=== PATIENT | female | born 1965 | race Caucasian/White ===

== ENCOUNTER 2021-12-01 10:04 | Outpatient (CLI) | payer OTHER, SELFPAY ==
--- NOTE | 2021-12-01 | EST_ITS ---
Patient Info Name: Jaz Lozano Age: 56 years : 1965 Gender: Female Ht: 62 in Wt: 177 lbs BSA: 1.91 m2 Exam Date: 12/01/2021 11:08 AM Exam Location: [facility] Stress Patient Status: Outpatient Admit Date: 12/01/2021 Staff Ordering Physician: PHYSICIAN NOT ON STAFF, NONSTAFF Attending Provider: PHYSICIAN NOT ON STAFF, NONSTAFF Exercise Technologist: Judie Sam RDCS Exercise Physician: Anoop Appiah DO Exam Type: CA stress jag w NM Study Info A regadenoson stress test was performed. Summary 1. 1. Negative lexiscan stress test for ischemic ST changes by ECG criteria. 2. 2. Baseline hypertension. 3. 3. Nuclear scan to follow and will be reported separately. Please correlate with it. 4. 4. Patient informed of the above results. Protocol: Lexiscan Stress ECG Details Stage: REST Duration (min): 5 min : 30 sec HR (bpm): 67 SBP (mmHg): 142 DBP (mmHg): 86 Stage: REST Duration (min): 11 min : 6 sec HR (bpm): 65 SBP (mmHg): 142 DBP (mmHg): 86 Stage: STAGE 1 Duration (min): 0 min : 59 sec HR (bpm): 67 SBP (mmHg): 147 DBP (mmHg): 87 Stage: RECOVERY Duration (min): 1 min : 0 sec HR (bpm): 69 SBP (mmHg): 150 DBP (mmHg): 86 Stage: RECOVERY Duration (min): 2 min : 0 sec HR (bpm): 72 SBP (mmHg): 150 DBP (mmHg): 86 Stage: RECOVERY Duration (min): 3 min : 0 sec HR (bpm): 70 SBP (mmHg): 149 DBP (mmHg): 87 Stage: RECOVERY Duration (min): 3 min : 3 sec HR (bpm): 70 SBP (mmHg): 149 DBP (mmHg): 87 Rest HR: 65 bpm Peak HR: 73 bpm Rest Sys BP: 142 mmHg Peak Sys BP: 150 mmHg Max Pred HR: 164 bpm % Max Pred HR: 45 % Target HR: 139 bpm Max RPP: 10,950 bpm*mmHg Termination Reason: Completed protocol Cardiac Symptoms: Shortness of breath Total Time: 1 min : 0 sec Rest Pierre BP: 86 mmHg Peak Pierre BP: 86 mmHg Total Dose: 0.4 mg Resting ECG Sinus rhythm, borderline T wave in anterior leads. Stress ECG No ST changes. Arrhythmias None. Report Signatures
--- NOTE | ~2021-12-01 | NM_ITS ---
EXAMINATION: NM jag stress w perfusion DATE: 12/01/2021 12:49 INDICATION: Congestive heart failure TECHNIQUE: Rest images were obtained following intravenous administration of 9.9 mCi Tc99m tetrofosmi n (Myoview). The patient was infused intravenously with Lexiscan (Regadenoson). Then, 30.3 mCi Tc99m tetrofosmin (Myoview) was administered intravenously, and stress images were obtained in supine posit ion. Additional repeat post stress imaging was obtained in a prone position. Data was reconstructed i nto short axis and horizontal and vertical long axis SPECT images. Gated SPECT images were also obtai hermelinda. COMPARISON: None. FINDINGS: There is no definite reversible or fixed perfusion abnormality to suggest ischemia or infar ction. Borderline left ventricular enlargement with calculated end-diastolic volume of 166 mL. There is mild global hypokinesis with mildly decreased left ventricular ejection fraction which measures 3 8%. IMPRESSION: 1. Normal myocardial perfusion at rest and during stress. 2. Borderline left ventricular enlargement with global hypokinesis and mildly decreased left ventricu lar ejection fraction measuring 38%. Reviewed, dictated and finalized at location B. IMPRESSION: 1. Normal myocardial perfusion at rest and during stress. 2. Borderline left ventricular enlargement with global hypokinesis and mildly d ecreased left ventricular ejection fraction measuring 38%.
== END 2021-12-01 10:05 | disposition home or self-care (01) ==
LOC: ANHCARD 10:05
DX: J44.9 Chronic obstructive pulmonary disease, unspecified (principal)
CPT/HCPCS: 78452; 93017; A9502; J2785

== ENCOUNTER 2021-12-08 07:40 | Outpatient (CLI) | payer OTHER, SELFPAY ==
--- NOTE | ~2021-12-08 | US_ITS ---
EXAMINATION: US right upper quadrant DATE: 12/08/2021 08:24 INDICATION: Elevated liver enzymes TECHNIQUE: Multiple grayscale and Doppler ultrasound images of the abdomen were obtained. COMPARISON: None available FINDINGS: Bowel gas obscures visualization of the pancreas. The visualized portions of the pancreas a re unremarkable. The liver is normal with normal echogenicity and echotexture. No surface nodularity. Normal hepatopetal flow in the main portal vein. The gallbladder is surgically absent. The normal co mmon bile duct measures 6 mm. IMPRESSION: 1. No sonographic correlate for the patient's symptoms. Reviewed, dictated and finalized at location B.
== END 2021-12-08 07:41 | disposition home or self-care (01) ==
DX: R74.8 Abnormal levels of other serum enzymes (principal)
CPT/HCPCS: 76705

== ENCOUNTER 2021-12-27 11:46 | Outpatient (CLI) | payer OTHER, SELFPAY ==
--- NOTE | 2021-12-27 12:12 | ECHO_ITS ---
Patient Info Name: Jaz Lozano Age: 56 years : 1965 Gender: Female Ht: 62 in Wt: 177 lbs BSA: 1.91 m2 HR: 74 bpm BP: 157 / 102 mmHg Technical Quality: Fair Exam Date: 12/27/2021 1:10 PM Exam Location: [facility] Patient Status: Outpatient Admit Date: 12/27/2021 Staff Ordering Physician: Anoop Appiah DO Gasket Supervisor: Judie Sam RDCS Attending Provider: Anoop Appiah DO Referring Physician: Td HEATH; Exam Type: CA echo doppler color flow Study Info Indications I50.9 - Heart failure, unspecified Complete two-dimensional, color flow and Doppler transthoracic echocardiogram is performed. Summary 1. Complete two-dimensional, color flow and Doppler transthoracic echocardiogram is performed. 2. Left ventricular chamber dimension is moderately enlarged. 3. Left ventricular systolic function is moderately reduced, estimated at 35-40%. 4. The left ventricular diastolic function is grade I diastolic dysfunction. 5. E/e' 19 is elevated. 6. Global longitudinal strain is abnormal at -9.5%. 7. There is mild aortic valve regurgitation. Left Ventricle E/e' 19 is elevated. Global longitudinal strain is abnormal at -9.5%. Left ventricular chamber dimension is moderately enlarged. Left ventricular systolic function is moderately reduced, estimated at 35-40%. The left ventricular diastolic function is grade I diastolic dysfunction. Right Ventricle Right ventricular chamber dimension is normal. Right ventricular systolic function is normal. Left Atria Left atrial chamber dimension is normal. Right Atria Right atrial chamber dimension is normal. Aortic Valve The aortic valve is trileaflet. There is no aortic valve stenosis. There is mild aortic valve regurgitation. Pulmonic Valve There is no pulmonic regurgitation. Mitral Valve There is no mitral valve stenosis. There is no mitral valve regurgitation. Tricuspid Valve There is no tricuspid valve regurgitation. Pericardium/Pleural There is no pericardial effusion. Inferior Vena Cava Normal inferior vena cava with >50% collapse upon inspiration consistent with normal right atrial pressure, 5 mmHg. Aorta The aortic root size at the sinus of Valsalva is normal. Left Ventricular Outflow Tract Name Value Normal LVOT 2D LVOT Diameter 2.0 cm LVOT Doppler LVOT Peak Gradient 5 mmHg LVOT Mean Gradient 3 mmHg LVOT VTI 24 cm LVOT VTI/AV VTI Ratio 0.8 LVOT Stroke Volume 74 ml LVOT CO 5.2 l/min LVOT CI 2.7 l/min/m2 Pulmonic Valve Name Value Normal RVOT Doppler RVOT Peak Gradient 2 mmHg PV Doppler
== END 2021-12-27 11:47 | disposition home or self-care (01) ==
PROVIDERS: Visit Provider Internal Medicine Cardiovascular Disease
DX: I50.9 Heart failure, unspecified (principal)
CPT/HCPCS: 93306

== ENCOUNTER 2022-03-01 13:15 | Outpatient (CLI) | payer OTHER, SELFPAY ==
--- NOTE | ~2022-03-01 | MM_ITS ---
EXAMINATION: MM diagnostic jermaine BI w giovanni HISTORY: Bilateral breast skin wounds, 3 on the right, 1 on the left, improving with antibiotics TECHNIQUE: ML, MLO and CC 3-D tomosynthesis images of both breasts were performed and synthetic 2-D i mages were generated. CAD analysis was submitted and interpreted. COMPARISON: 06/18/2008ilateral screening mammogram BREAST PARENCHYMAL COMPOSITION: The breasts are almost entirely fatty. FINDINGS: No suspicious mass or architectural distortion, malignant calcification, skin thickening or retraction or significant new or developing density is detected. IMPRESSION: 1. No mammographic evidence of malignancy 2. Routine mammographic screening is recommended BI-RADS Category 1: Negative Reviewed, dictated and finalized at location A.
== END 2022-03-01 13:16 | disposition home or self-care (01) ==
LOC: ANHIMG 13:17
DX: S21.002D Unspecified open wound of left breast, subsequent encounter (principal); S21.001D Unspecified open wound of right breast, subsequent encounter; X58.XXXD Exposure to other specified factors, subsequent encounter; N63.24 Unspecified lump in the left breast, lower inner quadrant
CPT/HCPCS: 77062; 77066; G0279

== ENCOUNTER 2022-03-09 07:56 | Outpatient (CLI) | payer OTHER, SELFPAY ==
--- NOTE | 2022-03-09 08:37 | ECHO_ITS ---
Patient Info Name: Jaz Lozano Age: 56 years : 1965 Gender: Female Ht: 62 in Wt: 172 lbs BSA: 1.88 m2 HR: 68 bpm BP: 126 / 80 mmHg Technical Quality: Fair Exam Date: 03/09/2022 9:14 AM Exam Location: [facility] Patient Status: Outpatient Admit Date: 03/09/2022 Staff Ordering Physician: Anoop Appiah DO Learning Operations Specialist: Mar Gillespie RDCS Attending Provider: Anoop Appiah DO Referring Physician: Td HEATH; Exam Type: CA echo doppler color flow Study Info Indications - CONGESTIVE HEART FAILURE Complete two-dimensional, color flow and Doppler transthoracic echocardiogram is performed. Summary 1. Complete two-dimensional, color flow and Doppler transthoracic echocardiogram is performed. 2. Left ventricular chamber dimension is mildly enlarged. 3. Left ventricular systolic function is mildly reduced, estimated at 45-50%. 4. The left ventricular diastolic function is grade I diastolic dysfunction. 5. E/e' 12 is mildly elevated. 6. Global longitudinal strain is abnormal at -11.0%. 7. Left atrial chamber dimension is mildly enlarged. 8. There is mild aortic valve regurgitation. 9. There is mild mitral valve regurgitation. 10. No pulmonary hypertension, estimated pulmonary arterial systolic pressure is 25 mmHg. Left Ventricle E/e' 12 is mildly elevated. Global longitudinal strain is abnormal at -11.0%. Left ventricular chamber dimension is mildly enlarged. Left ventricular systolic function is mildly reduced, estimated at 45-50%. The left ventricular diastolic function is grade I diastolic dysfunction. Right Ventricle Right ventricular chamber dimension is normal. Right ventricular systolic function is normal. Left Atria Left atrial chamber dimension is mildly enlarged. Right Atria Right atrial chamber dimension is normal. Aortic Valve The aortic valve is trileaflet. There is no aortic valve stenosis. There is mild aortic valve regurgitation. Pulmonic Valve There is no pulmonic regurgitation. Mitral Valve There is no mitral valve stenosis. There is mild mitral valve regurgitation. Tricuspid Valve There is no tricuspid valve regurgitation. No pulmonary hypertension, estimated pulmonary arterial systolic pressure is 25 mmHg. Pericardium/Pleural There is no pericardial effusion. Inferior Vena Cava Normal inferior vena cava with >50% collapse upon inspiration consistent with normal right atrial pressure, 5 mmHg. Aorta The aortic root size at the sinus of Valsalva is normal. Left Ventricular Outflow Tract Name Value Normal LVOT 2D LVOT Diameter 2.0 cm LVOT Doppler LVOT Peak Gradient 4 mmHg LVOT Mean Gradient 2 mmHg LVOT VTI 20 cm LVOT VTI/AV VTI Ratio 1.1 LVOT Stroke Volume 62 ml LVOT CO 12.3 l/min LVOT CI 6.5 l/min/m2 Pulmonic Valve Name
== END 2022-03-09 07:57 | disposition home or self-care (01) ==
PROVIDERS: Visit Provider Internal Medicine Cardiovascular Disease
DX: I50.9 Heart failure, unspecified (principal); I34.0 Nonrheumatic mitral (valve) insufficiency; I35.1 Nonrheumatic aortic (valve) insufficiency
CPT/HCPCS: 93306

== ENCOUNTER 2022-03-13 17:02 | Outpatient (CLI) | payer OTHER, SELFPAY | END 2022-03-13 17:03 | disposition home or self-care (01) | LOC: ANHLAB 17:03 | PROVIDERS: Visit Provider Surgery | DX: L98.8 Other specified disorders of the skin and subcutaneous tissue (principal) | CPT/HCPCS: 87081 ==

== ENCOUNTER 2023-10-03 10:06 | Outpatient (CLI) | payer OTHER, SELFPAY ==
[2023-10-03 10:45] LABS: Basophils Percent Auto 0.9 % (0.2-1.2); Eosinophils Absolute Auto 0.1 K/mm3 (0-0.3); Eosinophils Percent Auto 2.6 % (0-4.4); Hematocrit 42.2 % (37.0-47.0); Hemoglobin 12.9 g/dL (12.0-15.0); Immature Granulocyte Absolute 0.01 K/mm3 (0.00-0.031); Immature Granulocyte Percent A 0.2 % (0-0.5); Lymphocytes Absolute Auto 1.34 K/mm3 (0.9-3.2); Lymphocytes Percent Auto 29.4 % (18.3-44.2); Mean Corpuscular HGB Conc 30.6 g/dl (32-36); Mean Corpuscular Hemoglobin 29.9 pg (26-34); Mean Corpuscular Volume 97.9 fl (80-100); Mean Platelet Volume 9.6 fl (7.4-10.4); Monocytes Absolute Auto 0.5 K/mm3 (0.1-0.6); Monocytes Percent Auto 10.1 % (2.6-8.5); Neutrophils Absolute Auto 2.6 K/mm3 (1.3-6.7); Neutrophils Percent Auto 56.8 % (45.5-73.1); Platelet Count Result 195 k/mm3 (150-375); Red Blood Count 4.31 M/mm3 (4.2-5.4); Red Cell Distribution Width 14.1 % (11.5-14.5); White Blood Count 4.6 K/mm3 (4.5-10.0)
[2023-10-03 11:00] LABS: Alanine Aminotransferase 25 U/L (6-35); Alkaline Phosphatase 138 U/L (38-126); Anion Gap 5 mmol/L (8-16); Aspartate Amino Transferase 32 U/L (14-36); Bilirubin,Total 0.5 mg/dL (0.2-1.3); Blood Urea Nitrogen 20 mg/dL (7-17); Calcium 9.6 mg/dL (8.4-10.2); Carbon Dioxide 27 mmol/L (22-30); Chloride 105 mmol/L (98-107); Cholesterol 180 mg/dL (0-200); Estimated Glomerular Filt Rate 51; Glucose 93 mg/dL (65-110); HDL Direct 51 mg/dL; Magnesium 2.1 mg/dL (1.6-2.3); Potassium 4.3 mmol/L (3.4-5.0); Sodium 137 mmol/L (137-145); Triglycerides 125 mg/dL (<150)
[2023-10-03 11:12] LABS: LDL Cholesterol Direct 73 mg/dL
[2023-10-03 14:48] LABS: Hemoglobin A1C 5.6 % (<5.7)
== END 2023-10-03 10:07 | disposition home or self-care (01) ==
LOC: ANHLAB 10:09
PROVIDERS: PCP Family Medicine; Visit Provider Internal Medicine Cardiovascular Disease
DX: E78.5 Hyperlipidemia, unspecified (principal)
CPT/HCPCS: 36415; 80053; 80061; 83036; 83735; 85025

== ENCOUNTER 2023-10-10 07:22 | Outpatient (CLI) | payer OTHER, SELFPAY ==
--- NOTE | 2023-10-10 07:28 | ECHO_ITS ---
Patient Info Name: Jaz Lozano Age: 57 years : 1965 Gender: Female Ht: 62 in Wt: 191 lbs BSA: 1.99 m2 HR: 61 bpm BP: 120 / 80 mmHg Technical Quality: Fair Exam Date: 10/10/2023 7:36 AM Exam Location: [facility] Patient Status: Outpatient Admit Date: 10/10/2023 Staff Ordering Physician: Anoop Appiah DO Wrapper Stripper: Attending Provider: Anoop Appiah DO Referring Physician: Td HEATH; Exam Type: CA echo doppler color flow Study Info Indications I50.9 - Heart failure, unspecified Complete two-dimensional, color flow and Doppler transthoracic echocardiogram is performed. Summary 1. Complete two-dimensional, color flow and Doppler transthoracic echocardiogram is performed. 2. Left ventricular systolic function is preserved, estimated at 50-55%. 3. Left ventricular chamber dimension is normal. 4. The left ventricular diastolic function is grade I diastolic dysfunction. 5. E/e' 14 is mildly elevated. 6. Left atrial chamber dimension is mildly enlarged. 7. There is mild aortic valve sclerosis. 8. There is mild aortic valve regurgitation. 9. There is mild mitral valve regurgitation. Left Ventricle E/e' 14 is mildly elevated. Left ventricular systolic function is preserved, estimated at 50-55%. Left ventricular chamber dimension is normal. The left ventricular diastolic function is grade I diastolic dysfunction. Right Ventricle Right ventricular systolic function is normal and with normal TAPSE 2.2 cm. Right ventricular chamber dimension is normal. Left Atria Left atrial chamber dimension is mildly enlarged. Right Atria Right atrial chamber dimension is normal. Aortic Valve The aortic valve is trileaflet. There is mild aortic valve sclerosis. There is no aortic valve stenosis. There is mild aortic valve regurgitation. Pulmonic Valve There is no pulmonic regurgitation. Mitral Valve There is no mitral valve stenosis. There is mild mitral valve regurgitation. Tricuspid Valve There is no tricuspid valve regurgitation. Pericardium/Pleural There is no pericardial effusion. Inferior Vena Cava Normal inferior vena cava with >50% collapse upon inspiration consistent with normal right atrial pressure, 5 mmHg. Aorta The aortic root size at the sinus of Valsalva is normal. Left Ventricular Outflow Tract Name Value Normal LVOT 2D LVOT Diameter 2.0 cm LVOT Doppler LVOT Peak Gradient 4 mmHg LVOT Mean Gradient 2 mmHg LVOT VTI 24 cm LVOT VTI/AV VTI Ratio 0.6 LVOT Stroke Volume 75 ml LVOT CO 3.8 l/min LVOT CI 1.9 l/min/m2 Pulmonic Valve Name Value Normal PV Doppler PV Peak Gradient 2 mmHg Mitral Valve Name
== END 2023-10-10 07:23 | disposition home or self-care (01) ==
LOC: ANHCARD 07:24
PROVIDERS: PCP Family Medicine; Visit Provider Internal Medicine Cardiovascular Disease
DX: I50.9 Heart failure, unspecified (principal); I35.1 Nonrheumatic aortic (valve) insufficiency; I34.0 Nonrheumatic mitral (valve) insufficiency
CPT/HCPCS: 93306

== ENCOUNTER 2025-05-06 12:52 | Outpatient (CLI) | payer OTHER, SELFPAY ==
--- OUTSIDE RECORDS SUMMARY | 2025-05-06 12:58 | XMS_ITS | Encounter Summary ---
Author Organization [facility] Address [address] [place] [address] Care Team Providers Care General House Worker Name Role Phone Gabbi Perry MD Primary Care Provider [phone] Encounter Details Date Type Department Care Team (Late st Contact Info) Description 04/02/2025 Results Follow-Up [facility] [employer] [address] [place] [address] Gabbi Perry MD [address] [place] [address] TSH REFLEXIVE, COMPREHENSIVE METABOLIC PANEL, HEMOGLOBIN A1C Social History Tobacco Use Types Packs/Day Years Used Date Smoking Tobacco: Never Smokeless Tobacco: Never Alcohol Use Standard Drinks/Week Comments Not Currently 1 (1 standard drink = 0.6 oz pure alcohol) Maybe 1 drink a month if that Comments No Sex and Gender Information Value Date Recorded Sex Assigned at Not on file Legal Sex Female 10:45 AM CDT Gender Identity Not on file Sexual Orientation Not on file documented as of this encounter Miscellaneous Notes * Result Encounter Note - Brooke Villalobos - 04/02/2025 3:59 PM CDT Patient called back and has been informed * Result Encounter Note - Brooke Villalobos - 04/02/2025 3:58 PM CDT Lvm for pt to call our office back regarding labs documented in this encounter Plan of Treatment Not on file documented as of this encounter Visit Diagnoses Not on filedocumented in this encounter Care Teams General House Worker Relationship Specialty Start Date End Date Gabbi Perry MD [address] [place] [id number] PCP - General Internal Medicine 02/05/24 documented as of this encounter
--- OUTSIDE RECORDS SUMMARY | 2025-05-06 12:58 | XMS_ITS | Clinical Summary ---
Author Organization [facility] [employer] [place] Address [address] [place] [address] Care Team Providers Care Cinder Block Maker Name Role Phone Gabbi Perry MD Primary Care Provider [phone] Allergies Active Allergy Reactions Criticality Noted Date Comments Hydrochlorothiazide Dizziness Low 03/13/2019 Sulfa (Sulfonamide Antibiotics) Dizziness Low 03/2019 Medications Entresto 97-103 mg Tablet 01/01/20 22 Active carvediloL (COREG) 25 mg tablet 01/01/20 22 Active albuterol sulfate HFA 90 mcg/actuation aerosol inhalerIndicatio ns:Viral illness,Acute cough Take 2 Puffs by inhalation every 6 hours as needed for Shortness of Breath. 18 Gram 09/07/19 23 Active Additional Information Patient not taking.Reported on 04/01/2025 venlafaxine (EFFEXOR XR) 75 mg Extended Release 24 hour capsuleIndicatio ns:MADDIE (generalized anxiety disorder) TAKE 1 CAPSULE DAILY AT BEDTIME 90 Capsule 3 09/26/19 25 Active spironolactone (ALDACTONE) 50 mg tabletIndication s:Benign hypertension TAKE 1 TABLET DAILY 90 Tablet 3 11/27/19 25 Active tirzepatide, weight loss, (Zepbound) 12.5 mg/0.5 mL Pen Injector Inject 0.5 mL (12.5 mg) by subcutaneous injection every 7 days. 6 mL 04/21/20 25 Active tirzepatide, weight loss, (Zepbound) 12.5 mg/0.5 mL Pen Injector Inject 0.5 mL (12.5 mg) by subcutaneous injection every 7 days. 2 mL 03/23/20 25 025 Discontin ued(Reord er) Active Problems Problem Noted Date Diagnosed Date Obesity (BMI 30.0-34.9) 11/05/2024 Elevated serum creatinine 09/27/2022 Low vitamin D level 09/27/2022 Elevated TSH 09/27/2022 Prediabetes 08/28/2022 Congestive heart failure (CHF) 04/12/2022 Overview (04/21/2024): CHF 2006, nonischemic cardiomyopathy with improvement in EF. Echo 2023- EF 50- 55% Mass of lower inner quadrant of left breast 02/03 Benign hypertension 03/13/2019 Insomnia 03/13/2019 Encounters Date Type Department Care Team Description 04/21/2025 Refill [facility] [employer] [place] [address] [place] [address] Gabbi Perry MD 04/14/2025 External Device Data [facility] [place]STRACTION Provider, Abstract 04/07/2025 External Device Data [facility] [place] Provider, Abstract 04/02/2025 Results Follow-Up [facility] [employer] [facility] [address] [place] [phone] Gabbi Perry MD TSH REFLEXIVE, COMPREHENSIVE METABOLIC PANEL, HEMOGLOBIN A1C 04/01/2025 2:30 PM CDT Office Visit [facility] [employer] [place] [address] [place] [phone] Gabbi Perry MD Overweight (BMI 25.0-29.9) (Primary Dx); Prediabetes; Elevated serum creatinine; Benign hypertension with stage 3a chronic kidney disease (CMS/HCC); Elevated TSH 03/24/2025 External Device Data [facility] ABSTRACTION Provider, Abstract 02/18/2025 External Device Data [facility] ABSTRACTION Provider, Abstract 02/18/2025 External Device Data [facility] ABSTRACTION Provider, Abstract 02/18/2025 External Device Data [place] ABSTRACTION Provider, Abstract 02/17/2025 External Device Data [place] ABSTRACTION Provider, Abstract 02/03/2025 External Device Data [facility] ABSTRACTION Provider, Abstract from Last 3 Months Immunizations Immunization Administration Dates Next Due (ADACEL/BOOSTRIX)(10 YR UP) TDAP VACCINE, 0.5ML, IM 10/08/2024 (PFIZER)(12 YR UP) COVID-19 VACCINE - EMERGENCY USE AUTHORIZATION, MRNA, [id number](PF) 30 MCG/0.3 ML IM SUSP 06/11/2021,05/21/2021 Family History Medical History Relation Name Comments Amblyopia Brother Healthy Brother Heart Disease Father Fritz Heart disease high blood pressure bleeding ulcers migraines arthritis gout Hypertension Father Fritz Heart Disease Maternal Grandfather Lenore Briceño Con gestive heart failure Unknown Maternal Grandfather Lenore Briceño Stroke Maternal Grandmother Lenore Briceño Unknown Maternal Grandmother Lenore Briceño Diabetes Mother Gale Heart Disease Mother Gale Heart disease diabetes rheumatoid arthritis migraines Unknown Paternal Grandfather Unknown Paternal Grandmother Colon Cancer Sister 1 Healthy Sister 1 Diabetes Sister 2 Ember Liu Diabetes. Tripl e bypass open heart surgery Heart Disease Sister 2 Ember Liu CAD with CABG x 3. Pacer No Known Problems Son 1 No Known Problems Son 2 Breast Cancer Neg Hx Relation Name Status Comments Brother Alive Father Fritz Maternal Grandfather Lenore Briceño Maternal Grandmother Lenore Briceño Mother Gale Paternal Grandfather Paternal Grandmother Sister 1 Alive Sister 2 Ember Liu Son 1 Alive Son 2 Alive Social History Tobacco Use Types Packs/Day Years [...] on file Sexual Orientation Not on file Last Filed Vital Signs Vital Sign Reading Time Taken Comments Blood Pressure 132/78 04/01/2025 2:10 PM CDT Pulse 84 04/01/2025 2:10 PM CDT Temperature 36.7 C (98.1 F) 04/01/2025 2:10 PM CDT Respiratory Rate 18 04/01/2025 2:10 PM CDT Oxygen Saturation 96% 04/01/2025 2:10 PM CDT Inhaled Oxygen Concentration - - Weight 64.9 kg (143 lb) 04/01/2025 2:10 PM CDT Height 157.5 cm (5' 2) 04/01/2025 2:10 PM CDT Body Mass Index 26.16 04/01/2025 2:10 PM CDT Plan of Treatment Health Maintenance Due Date Last Done Comments HEPATITIS B VACCINES (1 of 3 - 19+ 3-dose series) 1984 HPV/Cotest (21-29) 1986 CERVICAL CANCER SCREENING 11/25/1995 HPV/Cotest (30-65) 11/25/1995 PAP SMEAR 11/25/1995 COLORECTAL SCREENING 2010 Colorectal Cancer Screening 2010 FIT-DNA Q 3 years 2010 FIT/FOBT Q 1 year 2010 Flex Sig/CT Colonography Q 5 years 2010 ZOSTER VACCINE (1 of 2) 11/25/2015 BREAST CANCER SCREENING 03/01/2023 03/01/2022 Preventative Visit- Commercial 08/06/2024 INFLUENZA VACCINE (#1) 2025 COVID-19 Vaccine (3 - 2024-2 6 season) 2025 06/11/2021, 05/21/2021 Pre-Diabetes and Diabetes Screening 04/01/2028 04/01/2025, 09/10/2024, 06/20/2023, Additional history exists DTAP/TDAP/TD VACCINES (2 - T d or Tdap) 10/08/2034 10/08/2024 Procedures Procedure Name Priority Date/Time Associated Diagnosis Comments HEMOGLOBIN A1C Routine 04/01/2025 2:53 PM CDT Prediabetes COMPREHENSIVE METABOLIC PANEL Routine 04/01/2025 2:53 PM CDT Benign hypertension with stage 3a chronic kidney disease (CMS/HCC) TSH REFLEXIVE Routine 04/01/2025 2:53 PM CDT Elevated TSH MAMMO DIAGNOSTIC BILATERAL W OR WO CAD Routine 03/01/2022 Breast wound, left, subsequent encounter Breast wound, right, subsequent encounter Mass of lower inner quadrant of left breast from Last 3 Months or Most Recently Relevant to Health Maintenance Results * TSH REFLEXIVE (04/01/2025 2:53 PM CDT) TSH 4.11 0.40 - 4.50 mIU/L [employer] [facility] Comment: Test Performed at: [place] [address] [place] [address] [employer] Vo Blood 04/01/2025 2:53 PM CDT 04/02/2025 1:20 AM CDT Gabbi Perry MD CHEMISTRY ORDERABLES Final Res ult [facility] [phone] [address] [address] [place] [address] * HEMOGLOBIN A1C (04/01/2025 2:53 PM CDT) HEMOGLOBIN A1C 5.1 <5.7 % of total Hgb [employer] Comment: For the purpose of screening for the presence of diabetes: <5.7% Consistent with the absence of diabetes 5.7-6.4% Consistent with increased risk for diabetes (prediabetes) > or =6.5% Consistent with diabetes This assay result is consistent with a decreased risk of diabetes. Currently, no consensus exists regarding use of hemoglobin A1c for diagnosis of diabetes in children. According to [place] Diabetes Association (ADA) guidelines, hemoglobin A1c <7.0% represents optimal control in non- diabetic patients. Different metrics may apply to specific patient populations. Standards of Medical Care in Diabetes(ADA). ESTIMATED AVERAGE GLUCOSE (MG/DL) 100 mg/dL [employer] Chamberlain ESTIMATED AVERAGE GLUCOSE (MMOL/L) 5.5 mmol/L [employer] Comment: Test Performed at: [place] [address] [place] [phone] [employer] [place] Blood 04/01/2025 2:53 PM CDT 04/02/2025 1:20 AM CDT us Gabbi Perry MD CHEMISTRY ORDERABLES Final Res ult Performing Organization Address City/State/[facility] Phone Number [facility] [phone] [place] [address] [place] [address] * (ABNORMAL) COMPREHENSIVE METABOLIC PANEL (04/01/2025 2:53 PM CDT) GLUCOSE 67 65 - 99 mg/dL [facility] [employer] Chamberlain Comment: Fasting reference interval BUN 14 7 - 25 mg/dL [facility] CREATININE 1.08(H) 0.50 - 1.03 mg/dL [facility] GFR 59(L) > OR = 60 mL/min/1. 73m2 [facility] BUN/CREAT RATIO 13 6 - 22 (calc) [facility] SODIUM 137 135 - 146 mmol/L [facility] POTASSIUM 3.7 3.5 - 5.3 mmol/L [facility] CHLORIDE 104 98 - 110 mmol/L [facility] CO2 21 20 - 32 mmol/L [facility] CALCIUM 9.7 8.6 - 10.4 mg/dL [facility] TOTAL PROTEIN 7.2 6.1 - 8.1 g/dL [facility] ALBUMIN 4.1 3.6 - 5.1 g/dL [facility] GLOBULIN 3.1 1.9 - 3.7 g/dL (calc) [facility] ALBUMIN/GLOBULIN RATIO 1.3 1.0 - 2.5 (calc) [facility] BILIRUBIN TOTAL 0.5 0.2 - 1.2 mg/dL [facility] ALKALINE PHOSPHATASE 76 37 - 153 U/L [facility] AST 21 10 - 35 U/L [facility] ALT 19 6 - 29 U/L [facility] Comment: Test Performed at: [facility] [address] [phone] [employer] [place] Blood 04/01/2025 2:53 PM CDT 04/02/2025 1:20 AM CDT us Gabbi Perry MD CHEMISTRY ORDERABLES Final Res ult Performing Organization Address City/[facility] Code Phone Number [facility] [phone] [facility] [address] [place] [address] * MAMMO DIAGNOSTIC BILATERAL W OR WO CAD (03/01/2022) Anatomical Region Laterality Modality Breast Bilateral Mammography Gena Burton MD MAMMO ORDERABLES Final Result from Last 3 Months or Most Recently Relevant to Health Maintenance Insurance [employer] OPEN ACCESS [facility] OPEN ACCESS Care Teams Cinder Block Maker Relationship Specialty Start Date End Date Gabbi Perry MD [address] [place] [phone] PCP - General Internal Medicine 02/05/24
--- NOTE | 2025-05-06 13:02 | ECHO_ITS ---
Patient Info Name: Jaz Lozano Age: 59 years : 1965 Gender: Female Ht: 63 in Wt: 135 lbs BSA: 1.66 m2 HR: 91 bpm BP: 122 / 88 mmHg Heart Rhythm: Sinus Rhythm Technical Quality: Fair Exam Date: 05/06/2025 1:12 PM Patient Status: O Admit Date: 05/06/2025 Exam Type: CA echo doppler color flow Complete two-dimensional, color flow and Doppler transthoracic echocardiogram is performed. Stave Planer Tender: Carolyn Zhao Attending Provider: Anoop Appiah DO Summary 1. Complete two-dimensional, color flow and Doppler transthoracic echocardiogram is performed. 2. Left ventricular chamber dimension is normal. 3. Left ventricular systolic function is normal, estimated at 60-65. 4. The left ventricular diastolic function is grade I diastolic dysfunction. 5. E/e' 13 is mildly elevated. 6. Left atrial chamber dimension is mildly enlarged. 7. There is mild aortic valve regurgitation. 8. There is mild mitral valve regurgitation. 9. There is trace tricuspid valve regurgitation. 10. No pulmonary hypertension, estimated pulmonary arterial systolic pressure is 16 mmHg. Left Ventricle E/e' 13 is mildly elevated. Left ventricular chamber dimension is normal. Left ventricular systolic function is normal, estimated at 60-65. The left ventricular diastolic function is grade I diastolic dysfunction. Right Ventricle Right ventricular chamber dimension is normal. Right ventricular systolic function is normal and with normal TAPSE 2.1 cm. Left Atria Left atrial chamber dimension is mildly enlarged. Right Atria Right atrial chamber dimension is normal. Aortic Valve The aortic valve is trileaflet. There is no aortic valve stenosis. There is mild aortic valve regurgitation. Pulmonic Valve There is no pulmonic regurgitation. Mitral Valve There is no mitral valve stenosis. There is mild mitral valve regurgitation. Tricuspid Valve There is trace tricuspid valve regurgitation. No pulmonary hypertension, estimated pulmonary arterial systolic pressure is 16 mmHg. Pericardium/Pleural There is no pericardial effusion. Inferior Vena Cava Normal inferior vena cava with >50% collapse upon inspiration consistent with normal right atrial pressure, 5 mmHg. Aorta The aortic root size at the sinus of Valsalva is normal. Left Ventricular Outflow Tract Name Value Normal LVOT 2D LVOT Diameter 2.0 cm LVOT Doppler LVOT Peak Velocity 96 cm/s LVOT Peak Gradient 4 mmHg LVOT Mean Gradient 2 mmHg LVOT VTI 18 cm LVOT VTI/AV VTI Ratio 0.6 LVOT Stroke Volume 53 ml LVOT CO 4.6 l/min LVOT CI 2.8 l/min/m2 Pulmonic Valve Name Value Normal RVOT Doppler RVOT Peak Velocity 75 cm/s RVOT Peak Gradient 2 mmHg PV Doppler PV Peak Velocity 97 cm/s PV Peak Gradient 4 mmHg Mitral Valve Name Value Normal MV Diastolic Function MV E Peak Velocity 88 cm/s MV A Peak Velocity 110 cm/s MV E/A 0.8 MV Decel Time (PW) 160 ms MV Annular TDI MV E/e' (Septal) 13.0 MV E/e' (Lateral) 13.6 MV E/e' (Average) 13.3 Tricuspid Valve Name Value Normal TV Regurgitation Doppler TR Peak Velocity 168 cm/s TR Peak Gradient 11 mmHg Estimated PAP/RSVP RA Pressure 5 mmHg <=5 PA Systolic Pressure 16 mmHg <36 RV Systolic Pressure 16 mmHg <36 TV Annular TDI TV Lateral Kristyn s' Velocity 9.8 cm/s >=9.5 Aorta Name Value Normal Ascending Aorta Ao Root Diameter (MM) 2.8 cm Ao Root Diam Index (MM) 1.7 cm/m2 Aortic Valve Name Value Normal AV Doppler AV Peak Velocity 164 cm/s AV Peak Gradient 11 mmHg AV Mean Gradient 5 mmHg AV VTI 27 cm AV Area (Cont Eq VTI) 1.9 cm2 >=3.0 AV Area (Cont Eq Kelvin) 1.7 cm2 AV DI (Kelvin) 0.58 AV Regurgitation 2D LVOT Area 3.0 cm2 Ventricles Name Value Normal LV Dimensions 2D/MM IVS Diastolic Thickness (2D) 0.9 cm 0.6-1.0 LVID Diastole (2D) 4.4 cm 3.8-5.2 LVIW Diastolic Thickness (2D) 0.9 cm 0.6-0.9 LVID Systole (2D) 3.2 cm 2.2-3.5 LVOT Diameter 2.0 cm LV Mass (2D Cubed) 129.19 g 67.00-162.00 LV Mass Index (2D Cubed) 78 g/m2 43-95 Relative Wall Thickness (2D) 0.41 <=0.42 LV Fractional Shortening/Ejection Fraction 2D/MM LV Fractional Shortening (2D) 28 % 27-45 LV EF (2D Teichholz) 55 % LV Diastolic Volume (4C MOD) 63 ml LV EF (4C MOD) 56 % LV Diastolic Volume (2C MOD) 84 ml LV EF (2C MOD) 57 % LV Diastolic Volume (BP MOD) 75 ml 46-106 LV Diastolic Volume Index (BP MOD) 45 ml/m2 29-61 LV Systolic Volume (BP MOD) 32 ml 14-42 LV Systolic Volume Index (BP MOD) 19 ml/m2 8-24 LV EF (BP MOD) 58 % 54-74 LV Diastolic Length (4C) 7.5 cm LV Systolic Length (4C) 6.5 cm LV Stroke Volume (4C MOD) 35 ml Atria Name Value Normal LA Dimensions LA Dimension (MM) 3.7 cm 2.7-3.8 LA Volume (4C A-L) 47 ml LA Volume (BP A-L) 49 ml RA Dimensions RA Area (4C) 10.4 cm2 <=18.0 Report Signatures
== END 2025-05-06 12:53 | disposition home or self-care (01) ==
LOC: ANHCARD 12:55
PROVIDERS: Visit Provider Internal Medicine Cardiovascular Disease
DX: I50.9 Heart failure, unspecified (principal); I35.1 Nonrheumatic aortic (valve) insufficiency; I34.0 Nonrheumatic mitral (valve) insufficiency
CPT/HCPCS: 93306